=== PATIENT | female | born 1975 | race Caucasian/White ===

== ENCOUNTER 2024-12-27 19:30 | Emergency (ER) | payer OTHER ==
[~2024-12-27] VITALS: Ht 157.5 cm; Wt 91.0 kg
[2024-12-27] MEDS: KETOROLAC 15MG/ML VIAL IV ONE (21:22)
[2024-12-27] MEDS: PROPOFOL 200MG/20ML VIAL IV ONE (21:48)
[2024-12-27] MEDS: KETAMINE HCL 50 MG/ML 10ML IV ONE (21:48)
[2024-12-27 22:27] VITALS: O2SAT 95
[2024-12-27 22:32] VITALS: BP 138/88; PULSE 103; RESP 12; TEMP 36.7; O2SAT 99
[2024-12-27] MEDS ORDERED: IBUP-2030 MT (22:37)
[2024-12-27] MEDS ORDERED: OXYC-105 MT (22:37)
== END 2024-12-27 23:04 | disposition home or self-care (01) ==
LOC: ER 19:30
DX: S93.05XA Dislocation of left ankle joint, initial encounter (principal); S82.832A Other fracture of upper and lower end of left fibula, initial encounter for closed fracture; W01.0XXA Fall on same level from slipping, tripping and stumbling without subsequent striking against object, initial encounter; Y93.89 Activity, other specified; Y92.89 Other specified places as the place of occurrence of the external cause; Y99.8 Other external cause status
CPT/HCPCS: 73610; 73620; 27825; 96374; 99152; 99285; J3490; J1885; J2704; Z7610 ×4